=== PATIENT | female | born 1960 | race African-American/Black ===

== ENCOUNTER 2021-04-24 12:41 | Emergency (ER) | payer MEDICARE, OTHER ==
[2021-04-24 12:57] VITALS: BP 174/96; PULSE 82; RESP 18; TEMP 98.2
[2021-04-24] MEDS ORDERED: carBAMazepine 400 MG TAB.ER.12H PO STA (13:16)
--- NOTE | 2021-04-24 13:42 | ED ---
General Adult HPI - General Chief complaint: Recheck/Abnormal Lab/Rx Stated complaint: Pain Time Seen by Provider: 04/24/21 13:10 Source: patient, RN notes reviewed, old records reviewed Mode of arrival: ambulatory Limitations: no limitations - History of Present Illness Initial comments: 60-year-old female with medication refill. Patient has history of trigeminal neuralgia over the past 11 years. She is on Tegretol 400 mg 3 times daily. She has been taking this 4 times daily secondary to increased pain. She states that her pain is on the right side of her face and has been present for the past 10+ years. She denies any changes just states this is been worse because she has been out of her medication for the past 24-48 hours. She has medication at home but is currently visiting her brother who is admitted to this institution. - Related Data Previous Rx's Medication Instructions Recorded carBAMazepine [TEGretol XR] 400 mg PO TID #12 tab 04/24/21 Allergies Allergy/AdvReac Type Severity Reaction Status Date / Time Penicillins AdvReac Rash/Hives Verified 04/24/21 12:52 Review of Systems ROS Statement: Those systems with pertinent positive or pertinent negative responses have been documented in the HPI. ROS Other: All systems not noted in ROS Statement are negative. Past Medical History Additional Past Medical History / Comment(s): trigeminal neuralgia History of Any Multi-Drug Resistant Organisms: None Reported Past Surgical History: Orthopedic Surgery Past Psychological History: No Psychological Hx Reported Smoking Status: Current every day smoker Past Alcohol Use History: None Reported Past Drug Use History: None Reported General Exam Limitations: no limitations General appearance: alert, in no apparent distress Head exam: Present: atraumatic, normocephalic Eye exam: Present: normal appearance, PERRL ENT exam: Present: normal exam Neck exam: Present: normal inspection. Absent: tenderness, meningismus Respiratory exam: Present: normal lung sounds bilaterally. Absent: respiratory distress, wheezes Cardiovascular Exam: Present: regular rate, normal rhythm GI/Abdominal exam: Present: soft. Absent: distended, tenderness, guarding Extremities exam: Present: normal inspection, normal capillary refill. Absent: pedal edema Neurological exam: Present: alert, oriented X3, CN II-XII intact. Absent: motor sensory deficit Psychiatric exam: Present: normal affect, normal mood Skin exam: Present: warm, dry, intact, normal color Course Vital Signs 04/24/21 12:53 Temperature 98.2 F Pulse Rate 82 Respiratory 18 Rate Blood Pressure 174/96 O2 Sat by Pulse 99 Oximetry Medical Decision Making - Medical Decision Making Patient given 2 doses of Tegretol 400 mg in the emergency department. She's given a short prescription for coverage for the next several days until she gets home. Disposition Clinical Impression: Encounter for medication refill Disposition: HOME SELF-CARE Condition: Fair Instructions (If sedation given, give patient instructions): Medicine Refill (ED) Prescriptions: carBAMazepine [TEGretol XR] 400 mg PO TID #12 tab Is patient prescribed a controlled substance at d/c from ED?: No Referrals: Nonstaff,Physician [Primary Care Provider] - 1-2 days Angel Azul MD [REFERRING] - 1-2 days Time of Disposition: 13:39
== END 2021-04-24 14:04 | disposition home or self-care (01) ==
LOC: EC 12:41
DX: Z76.0 Encounter for issue of repeat prescription (principal); F17.200 Nicotine dependence, unspecified, uncomplicated; Z88.0 Allergy status to penicillin
CPT/HCPCS: 96374; 99283; J1885